=== PATIENT | female | born 1990 | race Caucasian/White ===

== ENCOUNTER → 2023-12-04 07:28 | Outpatient (CLI) | payer OTHER, SELFPAY ==
--- NOTE | 2023-12-04 07:32 | DI.US.S_ITS ---
PROCEDURE: US OB >= 14 WEEKS FETUS INDICATIONS: DATING AND VIABILITY OUTSIDE/PRIOR DATING DATA: Last menstrual period (LMP): 10/05/2023. LMP-based estimated date of delivery ([place]): 07/11/2024. First dating scan (date and location): 12/04/2023. Estimated date of delivery ([place]) from first dating scan: 07/12/2024. TECHNIQUE: Real-time scanning was performed of the fetus, with image documentation and biometric measurements. COMPARISON: None. FINDINGS: General: A single living intrauterine gestation is present. [place]-rump length is 1.9 cm, corresponding ultrasound age of 8 weeks and 3 days. Gestational sac is seen. heart motion is detected at a rate of 163 beats per minute. Transabdominal the of the cervix measures 2.3 cm. Yolk sac is seen. IMPRESSION: Single living intrauterine gestation at an ultrasound age 8 weeks and 3 days. This is consistent with reported LMP. Limited transabdominal cervical length measurement is 2.3 cm, close attention on follow-up is suggested. Dictated by: Moe King M.D. on 12/04/2023 at 9:47 Approved by: Moe King M.D. on 12/04/2023 at 9:49
== END ==
LOC: US 07:31
PROVIDERS: Referring Provider Nurse Practitioner Obstetrics & Gynecology; Visit Provider Nurse Practitioner Obstetrics & Gynecology
DX: Z34.81 Encounter for supervision of other normal pregnancy, first trimester (principal); Z3A.08 8 weeks gestation of pregnancy
CPT/HCPCS: 76811

== ENCOUNTER → 2024-02-19 13:58 | Outpatient (CLI) | payer OTHER, SELFPAY ==
--- NOTE | 2024-02-19 13:59 | DI.US.S_ITS ---
PROCEDURE: US OB >= 14 WEEKS FETUS INDICATIONS: 20WK ANATOMY SCAN OUTSIDE/PRIOR DATING DATA: Last menstrual period (LMP): 10/05/2023 LMP-based estimated date of delivery ([place]): 07/11/2024 First dating scan (date and location): 12/04/2023 Estimated date of delivery ([place]) from first dating scan: 07/12/2024 The calculations are made using the clinical [place] of 07/11/2024. TECHNIQUE: Real-time scanning was performed of the fetus, with image documentation and biometric measurements. Endovaginal scanning: Not performed. COMPARISON: [facility], OB >= 14 WEEKS FETUS, 12/04/2023, 7:51. FINDINGS: General: A single living intrauterine gestation is present. Presentation: Breech Placenta: Placental position is posterior, without previa. Amniotic fluid index: 12.3 cm, normal range is 5-24 cm. Single deepest vertical pocket is 5.3 cm. heart rate: 158 beats per minute. Maternal cervical canal: 3.3 cm long. Normal lower limit is 2.5 cm. biometrics: Biparietal diameter: 4.5 cm, 19 weeks 5 days Head circumference: 16.7 cm, 19 weeks 3 days Abdominal circumference: 14.0 cm, 19 weeks 3 days Femur length: 3.1 cm, 19 weeks 4 days Clinically estimated gestational age: 19 weeks 4 days Composite gestational age from present scan: 19 weeks 4 days Estimated weight and percentile: 293 g, 38th percentile Anatomic survey: Neuro: Ventricles are non-dilated at less than 10 mm. Cisterna magna is normal at 3-11 mm. Cerebellum is normal in size and morphology. Nuchal skin fold: Normal at less than 6 mm between 14-21 weeks gestational age. Face: Nose and lips, facial profile are normal. Spine: No evidence for spina bifida. Heart: 4-chambered heart is present, with normal ventricular outflow tracts. Diaphragm: Diaphragm is intact. Stomach: Left-sided stomach is present. Kidneys: No hydronephrosis. Normal is less than 5 mm in 2nd trimester, less than 7 mm in 3rd trimester. Cord: 3-vessel cord has orthotopic insertion. Bladder: Normal in size. Extremities: All 4 extremities identified. IMPRESSION: 1. Single live intrauterine with appropriate interval growth. 2. anatomic survey is within normal limits. Approved by: Suhas Santa M.D. on 02/19/2024 at 16:06
== END ==
PROVIDERS: Referring Provider Nurse Practitioner Obstetrics & Gynecology; Visit Provider Nurse Practitioner Obstetrics & Gynecology
DX: Z34.92 Encounter for supervision of normal pregnancy, unspecified, second trimester (principal); Z3A.19 19 weeks gestation of pregnancy
CPT/HCPCS: 76811